=== PATIENT | male | born 1945 | race Caucasian/White ===

== ENCOUNTER 2016-10-12 04:06 | Emergency (ER) | payer OTHER ==
[~2016-10-12 04:06] MED LIST: AMOXICILLIN500 M1 PO; ATIVAN PO; BACITRACIN15 GM TP; CELEXA; CELEXA PO; CYMBALTA; CYMBALTA PO; ENDOCET 10-3251 TAB PO; HYDROCODON-ACE1 EAC5 PO; KEFLEX250 M1 PO; LAMOTRIGINE25 M1 PO; LYRICA; LYRICA100 MG PO; TYLENOL #3 PO
== END 2016-10-12 04:34 | disposition home or self-care (01) ==
LOC: SED 04:06
DX: T16.1XXA Foreign body in right ear, initial encounter (principal); F17.200 Nicotine dependence, unspecified, uncomplicated; I10 Essential (primary) hypertension; X58.XXXA Exposure to other specified factors, initial encounter; Y92.9 Unspecified place or not applicable
CPT/HCPCS: 99283

== ENCOUNTER 2016-12-16 16:24 | Emergency (ER) | payer OTHER | END 2016-12-16 16:59 | disposition home or self-care (01) | LOC: SED 16:24 | DX: S46.211A Strain of muscle, fascia and tendon of other parts of biceps, right arm, initial encounter (principal); F32.9 Major depressive disorder, single episode, unspecified; F17.210 Nicotine dependence, cigarettes, uncomplicated; X58.XXXA Exposure to other specified factors, initial encounter | CPT/HCPCS: 99283 ==